=== PATIENT | male | born 1950 | race Caucasian/White ===

== ENCOUNTER 2017-11-13 07:08 | Emergency (ER) | payer MEDICARE ==
[2017-11-13] MEDS: oxyCODONE/APAP 10/325 1 TAB TABLET PO (07:34)
[2017-11-13] MEDS: ONDANSETRON ODT 4 MG TAB.RAPDIS. PO (07:35)
[2017-11-13 07:39] LABS: POC GLUCOSE 100 mg/dL (70-99)
[2017-11-13] MEDS ORDERED: MORPHINE SULFATE 4 MG/ML DISP.SYRIN. (08:31)
[2017-11-13] MEDS: MORPHINE SULFATE 4 MG/ML DISP.SYRIN. IM (08:36)
== END 2017-11-13 08:43 ==
LOC: ER 07:08
DX: M62.838 Other muscle spasm (principal); M54.2 Cervicalgia; Z88.0 Allergy status to penicillin
CPT/HCPCS: 82962; 96372; 99284; J2060; J2270; Q0162